=== PATIENT | female | born 2000 | race Caucasian/White ===

== ENCOUNTER 2019-05-15 19:02 | Inpatient (IN) ==
[2019-05-15] MEDS ORDERED: KEFZOL 1 GM/D5W 1 GM/50 ML IVPB IV PRN (19:10)
[2019-05-15] MEDS ORDERED: PEPCID PO PRN (19:10)
[2019-05-15] MEDS ORDERED: TYLENOL PO PRN (19:10)
[2019-05-15] MEDS ORDERED: PEPCID IV PRN (19:10)
[2019-05-15] MEDS ORDERED: BRETHINE SUBQ PRN (19:10)
[2019-05-15] MEDS ORDERED: STADOL IV PRN ×2 (19:10)
[2019-05-15] MEDS ORDERED: ZOFRAN IV PRN (19:10)
[2019-05-15] MEDS ORDERED: AMBIEN PO PRN (19:10)
[2019-05-15] MEDS ORDERED: REGLAN PO ONE (19:10)
[2019-05-15] MEDS ORDERED: PEPCID PO ONE (19:10)
[2019-05-15] MEDS ORDERED: PITOCIN 30 UNITS/NS 30 UNIT/500 ML IV.SOLN IV SCH (19:15)
[2019-05-15 19:45] LABS: BASO# 0.02 X1000 (0.0-0.2); BASO% 0.2 % (0.0-0.8); EOS# 0.05 X1000 (0.0-0.7); EOS% 0.4 % (0.0-10.0); HEMATOCRIT 36.7 % (37.0-47.0); IMM GRAN# 0.03 X1000 (0.0-0.04); IMM GRAN% 0.2 % (0.0-0.5); LYMPH# 2.41 X1000 (1.2-3.4); LYMPH% 18.9 % (20.5-51.1); MCH 29.8 PG (27-31); MCHC 32.7 g/dL (33-37); MCV 91.1 FL (81-99); MONO% 7.8 % (1.7-9.3); NEUT# 9.24 X1000 (1.4-6.5); NEUT% 72.5 % (42.2-75.2); PLT 297 X1000 (130-400); RBC 4.03 XMIL (4.2-5.4); RDW 14.8 % (11.5-14.5); WBC 12.75 X1000 (4.8-10.8)
[2019-05-15] MEDS: LR 1,000 ML IV ONE (20:57)
[2019-05-15] MEDS: CYTOTEC ONE (20:57)
[2019-05-15 20:58] LABS: URINE SOURCE VOIDED
[2019-05-15 21:07] LABS: BILIRUBIN URINE NEGATIVE (NEGATIVE); BLOOD URINE TRACE (NEGATIVE); CLARITY SL. CLOUDY (CLEAR); COLOR YELLOW; KETONE URINE TRACE mg/dL (NEGATIVE); LEUKOCYTES URINE 2+ (NEGATIVE); NITRITE URINE NEGATIVE (NEGATIVE); PROTEIN URINE TRACE mg/dL (NEGATIVE); SP GRAVITY URINE 1.025; UROBILINOGEN URINE NORMAL
[2019-05-15 21:11] LABS: UR AMPHETAMINES QUAL NONE DETECTED (NONE DETECT); UR BARBITUATES QUAL NONE DETECTED (NONE DETECT); UR BENZODIAZEPIN QUAL NONE DETECTED (NONE DETECT); UR CANNABINOIDS QUAL NONE DETECTED (NONE DETECT); UR COCAINE QUAL NONE DETECTED (NONE DETECT); UR METHADONE QUAL NONE DETECTED (NONE DETECT); UR METHAMPHETAMINE QUAL NONE DETECTED (NONE DETECT); UR OPIATES QUAL NONE DETECTED (NONE DETECT); UR OXYCODONE QUAL NONE DETECTED (NONE DETECT); UR PCP QUAL NONE DETECTED (NONE DETECT); UR PROPOXYPHENE QUAL NONE DETECTED (NONE DETECT); UR TCA QUAL NONE DETECTED (NONE DETECT)
[2019-05-16] MEDS: STADOL IV PRN ×3 (00:03→06:28)
[2019-05-16] MEDS ORDERED: CYTOTEC ONE ×2 (01:02→04:59)
[2019-05-16] MEDS: CYTOTEC ONE (01:04)
[2019-05-16] MEDS: CYTOTEC VAG SCH (04:05)
--- NOTE | 2019-05-16 07:09 | HISTORY AND PHYSICAL ---
HISTORY OF PRESENT ILLNESS: Ms. Ruiz is a 19-year-old, G1, P 0, at 39 weeks and 5 days, who presents to Labor and Delivery for scheduled induction of labor. The patient reports good movement. Denies contractions, leakage of fluid, or vaginal bleeding. PAST MEDICAL HISTORY: Depression, ADHD, anxiety. PAST SURGICAL HISTORY: None. OBSTETRICAL HISTORY: G1, P0. Current has been uncomplicated. GYNECOLOGIC HISTORY: Denies STD exposure. Menarche at age 9. FAMILY HISTORY: Noncontributory. SOCIAL HISTORY: Denies alcohol, tobacco, or drug use. ALLERGIES: No known drug allergies. PHYSICAL EXAMINATION: VITAL SIGNS: Temperature 97.8 degrees Fahrenheit, blood pressure 119/83. Height 5 feet 2 inches, weight 173 pounds, BMI 31.6 kg/m2. GENERAL: No acute distress. Alert, awake, oriented x3. CARDIOVASCULAR: Regular rate and rhythm. Positive S1, S2. RESPIRATORY: Clear to auscultation bilaterally. ABDOMEN: Gravid, nontender to palpation, soft. EXTREMITIES: Negative calf tenderness. There is +1 edema. PELVIC: Vaginal exam: Closed, 50, -3. Electronic monitoring: Category 1 tracing. [place]: Negative contractions. LABORATORY DATA: WBCs 12.75, hemoglobin 12, hematocrit 36.7, platelets 297,000. Rubella nonimmune. RPR nonreactive. GBS negative. MEDICATIONS: Folic acid, vitamins. ASSESSMENT: Ms. Ruiz is a 19-year-old, G1, P0, at 39 weeks and 5 days, who presents for induction of labor. PLAN: 1. Admit to Labor and Delivery. 2. Induction with Cytotec 25 mcg every 4 hours per vagina for cervical ripening, followed by use of Pitocin and/or artificial rupture of membranes. 3. I discussed the risks and benefits of an elective induction of labor, risks of vaginal delivery, not limited to bleeding, lacerations, and need for blood transfusion and possible emergency section. Risks of section were discussed in depth with the patient, and not limited to bleeding, infection, possible injury to surrounding organs, and postoperative pain. 4. Depression and anxiety. Will monitor closely for depression. The patient understands the risks. 5. Continuous monitoring. 6. IV pain medications and/or epidural for pain management. 7. Estimated weight 8 pounds. 8. Anticipate vaginal delivery.
[2019-05-16] MEDS: LR 1,000 ML IV ONE ×2 (07:15→09:22)
[2019-05-16] MEDS ORDERED: MARCAINE 0.25% PF INJ ONE (07:15)
[2019-05-16] MEDS ORDERED: LR 0 ML ONE (07:29)
[2019-05-16] MEDS ORDERED: FENTANYL-BUPIV-NS 2 MCG-0.1% 250 ML EPIDURAL SCH (08:00)
[2019-05-16] MEDS ORDERED: XYLOCAINE-MPF 1% 5 ML ONE (08:54)
[2019-05-16] MEDS ORDERED: XYLOCAINE-MPF 1% INJ ONE (09:09)
[2019-05-16] MEDS ORDERED: MINERAL OIL PO ONE (09:10)
--- NOTE | 2019-05-16 09:52 | OB/GYN PROGRESS NOTE ---
OB Physical Exam Vital Signs - 8 hr 05/16/19 04:00 05/16/19 07:21 Temperature 97.2 F L 97.7 F Pulse Rate 82 81 Respiratory Rate 18 16 Blood Pressure 131/78 153/94 O2 Sat by Pulse Oximetry 97 Active Medications Generic Name Dose Route Start Last Admin Trade Name Freq PRN Reason Stop Dose Admin Acetaminophen 650 mg 05/15/19 19:10 Tylenol PO Q4-6H PRN PRN Headache Butorphanol Tartrate 2 mg 05/15/19 19:10 05/16/19 06:28 Stadol IV 2 mg PRN PRN Administration Pain Butorphanol Tartrate 1 mg 05/15/19 19:10 Stadol IV Q2H PRN PRN Pain (1-4 on Pain Scale) Butorphanol Tartrate 2 mg 05/15/19 19:10 Stadol IV Q2H PRN PRN Pain (5-10 on Pain Scale) Famotidine 20 mg 05/15/19 19:10 Pepcid IV Q12H PRN PRN GI upset or indigestion Famotidine 20 mg 05/15/19 19:10 Pepcid PO Q12H PRN PRN GI upset or indigestion Cefazolin Sodium/Dextrose 1 gm in 50 mls @ 100 mls/hr 05/15/19 19:10 Kefzol 1 Gm/D5w IV ONCE PRN PRN section Oxytocin/Sodium Chloride 30 unit in 500 mls @ 0 mls/hr 05/15/19 19:15 05/16/19 09:00 Pitocin 30 Units/Ns IV 2 mls/hr .Q0M YAZMIN Administration As Directed Fentanyl/Bupivacaine/Sodium Chlor 250 mls @ 0 mls/hr 05/16/19 08:00 05/16/19 08:18 Jqjajbku-[id number]-Tl 2 Mcg-0.1% EPIDURAL 12 mls/hr DIRECTED YAZMIN Administration As Directed Misoprostol 25 microgm 05/15/19 21:00 05/16/19 04:05 Cytotec VAG 05/16/19 17:01 Not Given Q4H YAZMIN Ondansetron HCl 4 mg 05/15/19 19:10 05/16/19 00:03 Zofran IV 4 mg PRN PRN Administration Nausea Terbutaline Sulfate 0.25 mg 05/15/19 19:10 Brethine SUBQ PRN PRN tachysystole/hypertonus Zolpidem Tartrate 10 mg 05/15/19 19:10 Ambien PO HS PRN PRN Sleep Laboratory Results - last 24 hr 05/15/19 05/15/19 05/15/19 19:05 19:05 19:30 WBC RBC Hgb Hct MCV MCH MCHC RDW Std Deviation Plt Count MPV Immature Gran % (Auto) Neut % (Auto) Lymph % (Auto) [place] % (Auto) Eos % (Auto) Baso % (Auto) Immature Gran # (Auto) Neut # (Auto) Lymph # (Auto) [place] # (Auto) Eos # (Auto) Baso # (Auto) Urine Source VOIDED Urine Color YELLOW Urine Clarity SL. CLOUDY A Urine pH 6.0 Ur Specific [place] 1.025 Urine Protein TRACE A Urine Ketones TRACE Urine Blood TRACE Urine Nitrite NEGATIVE Urine Bilirubin NEGATIVE Urine Urobilinogen NORMAL Urine WBC 2+ A Urine Glucose 1+(100 mg/dL) A Urine Opiates Screen NONE DETECTED Ur Oxycodone Screen NONE DETECTED Urine Methadone Screen NONE DETECTED U Propoxyphene Qual NONE DETECTED Ur Barbituates Screen NONE DETECTED Ur Tricyclics Screen NONE DETECTED Ur Phencyclidine Scrn NONE DETECTED Ur Amphetamines Screen NONE DETECTED U Methamphetamines Scrn NONE DETECTED U Benzodiazepines Scrn NONE DETECTED Urine Cocaine Screen NONE DETECTED U Cannabinoids Screen NONE DETECTED RPR NON-REACTIVE 05/15/19 19:30 WBC 12.75 H RBC 4.03 L Hgb 12.0 Hct 36.7 L MCV 91.1 MCH 29.8 MCHC 32.7 L RDW Std Deviation 14.8 H Plt Count 297 MPV 10.0 Immature Gran % (Auto) 0.2 Neut % (Auto) 72.5 Lymph % (Auto) 18.9 L [place] % (Auto) 7.8 Eos % (Auto) 0.4 Baso % (Auto) 0.2 Immature Gran # (Auto) 0.03 Neut # (Auto) 9.24 H Lymph # (Auto) 2.41 [place] # (Auto) 1.00 H Eos # (Auto) 0.05 Baso # (Auto) 0.02 Urine Source Urine Color Urine Clarity Urine pH Ur Specific [place] Urine Protein Urine Ketones Urine Blood Urine Nitrite Urine Bilirubin Urine Urobilinogen Urine WBC Urine Glucose Urine Opiates Screen Ur Oxycodone Screen Urine Methadone Screen U Propoxyphene Qual Ur Barbituates Screen Ur Tricyclics Screen Ur Phencyclidine Scrn Ur Amphetamines Screen U Methamphetamines Scrn U Benzodiazepines Scrn Urine Cocaine Screen U Cannabinoids Screen RPR
--- NOTE | 2019-05-16 09:56 | OB/GYN PROGRESS NOTE ---
Progress Note OB - . OB Progress Note: Vital Signs - 24 hr 05/15/19 19:10 05/16/19 04:00 05/16/19 07:21 Temperature 96.8 F L 97.2 F L 97.7 F Pulse Rate 90 82 81 Respiratory Rate 18 18 16 Blood Pressure 123/82 131/78 153/94 O2 Sat by Pulse Oximetry 97 Laboratory Results - last 24 hr 05/15/19 05/15/19 05/15/19 19:05 19:05 19:30 WBC RBC Hgb Hct MCV MCH MCHC RDW Std Deviation Plt Count MPV Immature Gran % (Auto) Neut % (Auto) Lymph % (Auto) [place] % (Auto) Eos % (Auto) Baso % (Auto) Immature Gran # (Auto) Neut # (Auto) Lymph # (Auto) [place] # (Auto) Eos # (Auto) Baso # (Auto) Urine Source VOIDED Urine Color YELLOW Urine Clarity SL. CLOUDY A Urine pH 6.0 Ur Specific [place] 1.025 Urine Protein TRACE A Urine Ketones TRACE Urine Blood TRACE Urine Nitrite NEGATIVE Urine Bilirubin NEGATIVE Urine Urobilinogen NORMAL Urine WBC 2+ A Urine Glucose 1+(100 mg/dL) A Urine Opiates Screen NONE DETECTED Ur Oxycodone Screen NONE DETECTED Urine Methadone Screen NONE DETECTED U Propoxyphene Qual NONE DETECTED Ur Barbituates Screen NONE DETECTED Ur Tricyclics Screen NONE DETECTED Ur Phencyclidine Scrn NONE DETECTED Ur Amphetamines Screen NONE DETECTED U Methamphetamines Scrn NONE DETECTED U Benzodiazepines Scrn NONE DETECTED Urine Cocaine Screen NONE DETECTED U Cannabinoids Screen NONE DETECTED RPR NON-REACTIVE 05/15/19 19:30 WBC 12.75 H RBC 4.03 L Hgb 12.0 Hct 36.7 L MCV 91.1 MCH 29.8 MCHC 32.7 L RDW Std Deviation 14.8 H Plt Count 297 MPV 10.0 Immature Gran % (Auto) 0.2 Neut % (Auto) 72.5 Lymph % (Auto) 18.9 L [place] % (Auto) 7.8 Eos % (Auto) 0.4 Baso % (Auto) 0.2 Immature Gran # (Auto) 0.03 Neut # (Auto) 9.24 H Lymph # (Auto) 2.41 [place] # (Auto) 1.00 H Eos # (Auto) 0.05 Baso # (Auto) 0.02 Urine Source Urine Color Urine Clarity Urine pH Ur Specific [place] Urine Protein Urine Ketones Urine Blood Urine Nitrite Urine Bilirubin Urine Urobilinogen Urine WBC Urine Glucose Urine Opiates Screen Ur Oxycodone Screen Urine Methadone Screen U Propoxyphene Qual Ur Barbituates Screen Ur Tricyclics Screen Ur Phencyclidine Scrn Ur Amphetamines Screen U Methamphetamines Scrn U Benzodiazepines Scrn Urine Cocaine Screen U Cannabinoids Screen RPR Pt seen and examined. Admitted for IOL. Pt made appropriate change management manager night and requested epidural for pain mgt. S/p epidural, RN attempted to insert jarrell cath. I was called to room due to significant bleeding noted with jarrell insertion. Jarrell was appropriately inserted into bladder and an anterior urethra tear was identified. Urology, Dr. Romain Cannon was consulted. Informed web content writer, urethra too vascular to repair with stitch. Advised to place jarrell balloon on tension at bladder neck. Pressure is also being applied up against the pubic symphysis with 4x4 gauze. Pt is currently 9cm/100%/0. Pitocin applied to augment labor and reassess urethra tear. Will call Dr. Cannon if no improvement s/p pressure at pubic symphysis and jarrell balloon tension on bladder neck
[2019-05-16] MEDS ORDERED: MARCAINE 0.5% PF INJ ONE (10:58)
[2019-05-16] MEDS ORDERED: MARCAINE 0.5% PF ONE (11:03)
[2019-05-16] MEDS ORDERED: REGLAN PO ONE (11:07)
[2019-05-16] MEDS ORDERED: PITOCIN ONE ×4 (11:27→12:01)
[2019-05-16] MEDS ORDERED: DURAMORPH ONE (11:32)
[2019-05-16] MEDS ORDERED: DILAUDID ONE (12:13)
[2019-05-16] MEDS ORDERED: ZOFRAN ONE (12:30)
[2019-05-16] MEDS ORDERED: DEMEROL IM PRN (12:42)
[2019-05-16] MEDS ORDERED: BOOSTRIX VACCINE IM ONE (12:42)
[2019-05-16] MEDS ORDERED: MOTRIN PO PRN (12:42)
[2019-05-16] MEDS ORDERED: DULCOLAX PR PRN (12:42)
[2019-05-16] MEDS ORDERED: PITOCIN IM PRN (12:42)
[2019-05-16] MEDS ORDERED: PITOCIN 20 UNITS/NS 20 UNITS/1,000 ML IV.SOLN IV ONE (12:42)
[2019-05-16] MEDS ORDERED: ATARAX PO PRN (12:42)
[2019-05-16] MEDS ORDERED: DEMEROL PO PRN ×2 (12:42)
[2019-05-16] MEDS ORDERED: PHENERGAN IM PRN (12:42)
[2019-05-16] MEDS ORDERED: MYLICON PO PRN (12:42)
[2019-05-16] MEDS ORDERED: AMBIEN PO PRN (12:42)
[2019-05-16] MEDS ORDERED: HYDROXYZINE IM PRN (12:42)
[2019-05-16] MEDS ORDERED: M-M-R II VACCINE SUBQ ONE (12:42)
[2019-05-16] MEDS ORDERED: PITOCIN 10 UNITS/NS 1,000 ML IV SCH (12:45)
[2019-05-16] MEDS ORDERED: ZOFRAN IV PRN ×2 (13:15)
[2019-05-16] MEDS ORDERED: ZOFRAN ODT PO PRN (13:15)
[2019-05-16] MEDS ORDERED: BENADRYL IV PRN (13:15)
[2019-05-16] MEDS ORDERED: NARCAN INJ PRN (13:15)
[2019-05-16 13:55] LABS: BASO# 0.01 X1000 (0.0-0.2); BASO% 0.1 % (0.0-0.8); HEMATOCRIT 35.1 % (37.0-47.0); HEMOGLOBIN 11.2 g/dL (12.0-16.0); IMM GRAN# 0.04 X1000 (0.0-0.04); IMM GRAN% 0.2 % (0.0-0.5); LYMPH# 1.37 X1000 (1.2-3.4); LYMPH% 7.6 % (20.5-51.1); MCH 29.6 PG (27-31); MCHC 31.9 g/dL (33-37); MCV 92.6 FL (81-99); MONO# 0.96 X1000 (0.11-0.59); MONO% 5.3 % (1.7-9.3); MPV 9.9 FL (7.4-10.4); NEUT# 15.65 X1000 (1.4-6.5); NEUT% 86.8 % (42.2-75.2); PLT 291 X1000 (130-400); RBC 3.79 XMIL (4.2-5.4); RDW 14.9 % (11.5-14.5); WBC 18.03 X1000 (4.8-10.8)
[2019-05-16 13:57] LABS: LYMPHS 7 % (21-51); MONO 5 % (1-9); SEGS 88 % (42-75)
[2019-05-16] MEDS: MYLICON PO SCH ×3 (14:51→20:35)
[2019-05-16] MEDS ORDERED: MONSEL SOLUTION TOP ONE (17:16)
[2019-05-16] MEDS: PERICOLACE PO SCH (20:36)
--- NOTE | 2019-05-16 21:47 | OPERATIVE NOTE ---
PROCEDURE DATE: 05/16/2019 SURGEON: Sharon Alvarez DO DESK OFFICER: Aniceto Gilliland III, MD PREOPERATIVE DIAGNOSES: 1. Intrauterine at 39 weeks and 5 days. 2. Category 3 tracing, recurrent late decelerations. POSTOPERATIVE DIAGNOSES: 1. Intrauterine at 39 weeks and 5 days. 2. Category 3 tracing, recurrent late decelerations. PROCEDURE PERFORMED: Primary low transverse section. ANESTHESIA: Epidural. FINDINGS: Normal uterus, bilateral tubes and ovaries. Viable male , weighing 7 pounds 4 ounces. Apgars 6 and 8 at 1 and 5 minutes respectively. COMPLICATIONS: None. ESTIMATED BLOOD LOSS: 600 mL. SPECIMENS REMOVED: Placenta. URINE OUTPUT: 75 mL. IV FLUIDS: 1000 mL. SURGICAL RISKS: The patient was informed of the risks and benefits of the procedure. The risks include, but were not limited to, bleeding, infection, injury to internal organs and possible hysterectomy. The patient expressed understanding of the risks involved. All questions were answered, and the patient consented to procedure. DESCRIPTION OF PROCEDURE: Patient was taken to the operating room where a time- out was performed to confirm correct patient and correct procedure. Spinal anesthesia was adequately established, and prophylactic intravenous antibiotics was administered. The patient was then placed in a dorsal supine position with a left tilt of the hips. The patient was then prepped and draped in the usual sterile fashion for a Pfannenstiel incision skin incision. The incision was made in the skin with a surgical scalpel. Sharp dissection was carried out over subsequent layers of the tissue, including the fascia followed by the Bovie electrocautery for hemostasis. The fascia was incised at the midline fascia. The fascial incision was extended bilaterally using the Bovie electrocautery. The inferior edge of the fascial incision was grasped with Angela clamps, tented up and the underlying rectus muscle was dissected off bluntly with the Bovie electrocautery. Attention was then turned to the superior edge, which was grasped with Angela clamps, tented up and the underlying rectus muscle was dissected off using Bovie electrocautery. The rectus muscle was then divided at the midline, and the peritoneum was identified, tented up, at its superior margin, taking care to avoid the bladder, and then entered bluntly. The peritoneal incision was extended superiorly and inferiorly using Bovie electrocautery with good visualization of the bladder. The bladder blade was inserted, and the vesical peritoneum was identified. It was grasped with smooth pickups and cut laterally to both sides using Metzenbaum scissors. A bladder flap was then created using blunt and sharp dissection with the Metzenbaum scissors. The bladder blade was reinserted, and a transverse incision was made in the lower uterine segment using the scalpel. The uterine incision was extended bilaterally using blunt dissection. The amniotic sac was entered, and the amniotic sac fluid was noted to be clear. The electrical assistant's hand was then placed into the uterine cavity and the head was identified elevated into the abdomen and delivered through the uterine incision with the assistance of fundal pressure. The infant was examined for nuchal cord. No nuchal cord was identified. The was bulb suctioned via the mouth and nasal passages. The was then delivered with traction and the assistance of fundal pressure. On delivery, the cord was clamped and cut. The was then passed off the table to the director field services staff for further care. Cord blood was obtained for analysis and routine blood testing. The placenta was manually extracted intact with a three- vessel cord. Oxytocin was administered by IV infusion to enhance uterine contractions. The uterus was exteriorized, and cleared of all clots and remaining products of conception. Prior to repairing the uterine incision, an extension along the posterior aspect of the lower uterine segment was repaired using 1-0 Monocryl in a running locked fashion. The uterine incision was then reapproximated using 1-0 Monocryl in a running locked fashion. Non- hemostatic areas were reinforced with 1-0 Monocryl in a [id number] stitch. Good hemostasis was confirmed, and the uterus was replaced into the abdomen. The pericolic gutters were cleared of all clots. The peritoneal tissue was identified below the rectus muscle and reapproximated using 2-0 plain in a running nonlocking fashion. Attention was then turned to the fascia which was reapproximated using 0 Vicryl in a running nonlocking fashion. The subcutaneous fat was reapproximated using 2-0 plain gut in a running nonlocking fashion. The skin was reapproximated using 2-0 Monocryl on a Ba stitch inserted in a running subcuticular fashion. All needle, sponge, and instrument counts were noted to be correct x2 at the end of the procedure. The patient tolerated the procedure well and was transferred to recovery in stable condition. The anterior urethral tear was examined by myself as well as Dr. Gilliland. Good hemostasis was noted on examination. Be balloon was reapplied on tension to reinforce hemostasis along the urethral/ bladder neck edge. [facility]
[2019-05-16] MEDS: MORPHINE IV PRN (23:49)
[2019-05-17 06:12] LABS: HEMATOCRIT 31.1 % (37.0-47.0); HEMOGLOBIN 9.8 g/dL (12.0-16.0); MCH 29.4 PG (27-31); MCHC 31.5 g/dL (33-37); MCV 93.4 FL (81-99); RBC 3.33 XMIL (4.2-5.4); RDW 15.4 % (11.5-14.5); WBC 12.19 X1000 (4.8-10.8)
[2019-05-17] MEDS: MORPHINE IV PRN (08:26)
[2019-05-17] MEDS ORDERED: PERI MEDS (DERMOPLAST/NUPERCAINAL/TUCKS) MISC PRN (08:49)
--- NOTE | 2019-05-17 09:04 | OB/GYN PROGRESS NOTE ---
Progress Note OB - . Patient Problems: Current Active Problems Problem Status Onset S/P primary low transverse Acute OB Progress Note: Vital Signs - 24 hr 05/16/19 10:31 05/16/19 12:36 05/16/19 12:46 Temperature 96.4 F L 96.9 F L Pulse Rate 93 H 109 H 105 H Respiratory Rate 18 14 14 Blood Pressure 126/75 129/76 Blood Pressure [Left Arm] 105/59 110/60 O2 Sat by Pulse Oximetry 100 100 100 05/16/19 12:56 05/16/19 13:06 05/16/19 13:16 Temperature Pulse Rate 109 H 125 H 123 H Respiratory Rate 15 18 18 Blood Pressure Blood Pressure [Left Arm] 120/66 103/61 117/66 O2 Sat by Pulse Oximetry 100 100 100 05/16/19 13:26 05/16/19 13:36 05/16/19 13:38 Temperature Pulse Rate 115 H 125 H 125 H Respiratory Rate 18 18 Blood Pressure 113/60 Blood Pressure [Left Arm] 117/62 113/60 O2 Sat by Pulse Oximetry 100 100 100 05/16/19 15:02 05/16/19 16:20 05/16/19 20:21 Temperature 98.3 F 97.8 F Pulse Rate 106 H 133 H Respiratory Rate 18 20 Blood Pressure 118/71 128/74 Blood Pressure [Left Arm] O2 Sat by Pulse Oximetry 100 100 97 05/16/19 23:35 05/17/19 04:01 05/17/19 08:00 Temperature 97.7 F 98.3 F Pulse Rate 129 H 123 H 127 H Respiratory Rate 20 18 16 Blood Pressure 122/66 112/61 130/85 Blood Pressure [Left Arm] O2 Sat by Pulse Oximetry 96 96 98 Laboratory Results - last 24 hr 05/16/19 05/16/19 05/17/19 09:25 13:38 05:20 WBC 18.03 H 12.19 H RBC 3.79 L 3.33 L Hgb 11.2 L 9.8 L Hct 35.1 L 31.1 L MCV 92.6 93.4 MCH 29.6 29.4 MCHC 31.9 L 31.5 L RDW Std Deviation 14.9 H 15.4 H Plt Count 291 193 D MPV 9.9 10.0 Immature Gran % (Auto) 0.2 Neut % (Auto) 86.8 H Lymph % (Auto) 7.6 L [place] % (Auto) 5.3 Eos % (Auto) 0.0 Baso % (Auto) 0.1 Immature Gran # (Auto) 0.04 Neut # (Auto) 15.65 H Lymph # (Auto) 1.37 [place] # (Auto) 0.96 H Eos # (Auto) 0.00 Baso # (Auto) 0.01 Segmented Neutrophils 88 H Lymphocytes 7 L Monocytes 5 Blood Type O POSITIVE Antibody Screen NEGATIVE S: Patient reports of some abdominal pain, but controlled with pain meds. Denied fever, chills, N/V, SOB, or chest pain. Tolerating clears. Has not ambulated yet. Unsure of amount of vaginal bleeding. O: Gen: NAD; AAOx3 CV: tachycardic; regular rhythm Pulm: CTAB; no rhonchi, wheezing, or rales Abd: soft, some TTP; non-distended; hypoactive bowel sounds; fundus firm Incision: dressing clear, dry Ext: no LE TTP; SCDs on and functioning Pelvic: 4x4 Ray-neelima removed; no active bleeding noted around urethra; area tender to touch; smeared with monsels Jarrell bag: clear, yellow tinged UOP: ~480cc/8hrs Labs: reviewed A&P: 19yo s/p CD#1 for NRFHTs at 39w5d with urethral laceration, 1. POD#1 -Serial H/H reviewed -Tachycardia seems to be related to the associated pain, as BPs wnl and UOP adequate -Will keep jarrell cath in for now until can better evaluate urethra. Encouraged use of benzocaine spray around area. If pain persist, consider lidocaine gel topically -Diet advanced; IV saline locked 2. Hx depression/anxiety -Patient denied -SW consultation ordered, jolene considering this is patient's first baby 3. ADHD
[2019-05-17] MEDS: MOTRIN PO SCH ×2 (09:46→17:50)
[2019-05-17] MEDS: NORCO-10 PO PRN ×3 (09:47→23:03)
[2019-05-17] MEDS: MYLICON PO SCH ×4 (09:48→23:03)
[2019-05-17 12:33] LABS: BASO# 0.01 X1000 (0.0-0.2); BASO% 0.1 % (0.0-0.8); EOS# 0.03 X1000 (0.0-0.7); EOS% 0.2 % (0.0-10.0); HEMATOCRIT 31.2 % (37.0-47.0); IMM GRAN# 0.04 X1000 (0.0-0.04); IMM GRAN% 0.3 % (0.0-0.5); LYMPH# 1.74 X1000 (1.2-3.4); LYMPH% 12.3 % (20.5-51.1); MCH 29.9 PG (27-31); MCHC 32.1 g/dL (33-37); MCV 93.1 FL (81-99); MONO# 1.06 X1000 (0.11-0.59); MONO% 7.5 % (1.7-9.3); MPV 9.6 FL (7.4-10.4); NEUT# 11.22 X1000 (1.4-6.5); NEUT% 79.6 % (42.2-75.2); PLT 238 X1000 (130-400); RBC 3.35 XMIL (4.2-5.4); RDW 15.4 % (11.5-14.5)
[2019-05-17] MEDS ORDERED: LR 1,000 ML IV SCH (12:42)
[2019-05-17] MEDS: PERICOLACE PO SCH (23:03)
[2019-05-18] MEDS: MOTRIN PO SCH ×3 (01:11→18:31)
[2019-05-18] MEDS: NORCO-10 PO PRN ×3 (04:49→16:23)
--- NOTE | 2019-05-18 07:39 | OB/GYN PROGRESS NOTE ---
Progress Note OB - . Patient Problems: Current Active Problems Problem Status Onset S/P primary low transverse Acute OB Progress Note: Vital Signs - 24 hr 05/17/19 08:00 05/17/19 08:03 05/17/19 12:16 Temperature 98.3 F 97 F L Pulse Rate 127 H 121 H 125 H Respiratory Rate 16 16 20 Blood Pressure 130/85 119/73 O2 Sat by Pulse Oximetry 98 98 05/17/19 16:00 05/17/19 19:43 05/17/19 20:27 Temperature 96.8 F L 96.8 F L Pulse Rate 109 H 108 H Respiratory Rate 16 20 Blood Pressure 119/72 124/80 O2 Sat by Pulse Oximetry 98 99 96 05/18/19 01:07 05/18/19 04:35 Temperature 96.5 F L 96.7 F L Pulse Rate 115 H 119 H Respiratory Rate 18 18 Blood Pressure 115/59 125/65 O2 Sat by Pulse Oximetry 97 99 Laboratory Results - last 24 hr 05/17/19 12:15 WBC 14.10 H RBC 3.35 L Hgb 10.0 L Hct 31.2 L MCV 93.1 MCH 29.9 MCHC 32.1 L RDW Std Deviation 15.4 H Plt Count 238 MPV 9.6 Immature Gran % (Auto) 0.3 Neut % (Auto) 79.6 H Lymph % (Auto) 12.3 L [place] % (Auto) 7.5 Eos % (Auto) 0.2 Baso % (Auto) 0.1 Immature Gran # (Auto) 0.04 Neut # (Auto) 11.22 H Lymph # (Auto) 1.74 [place] # (Auto) 1.06 H Eos # (Auto) 0.03 Baso # (Auto) 0.01 19 yo POD#2 s/p 1LTCS at 39w5d due to NRFHTs with urethral laceration Patient seen and examined. Pain controlled. Jarrell catheter in place. She has ambulated 3x since surgery. She is tolerating a regular diet, no nausea/vomiting. She notes minimal vaginal bleeding. Baby is doing well, she is bottle feeding. Physical Exam-General - PHYSICAL EXAM-ADULT Initial Vital Signs Reviewed: Yes - CONSTITUTIONAL General Appearance: appears well, alert, no apparent distress - EYES Eyes: PERRL/EOMI - HEAD, EARS, NOSE, MOUTH & THROAT HENMT: normocephalic/atraumatic - RESPIRATORY Respiratory: lungs clear, normal breath sounds, no respiratory distress - CARDIOVASCULAR Cardiovascular: regular rate, rhythm - GASTROINTESTINAL (ABDOMEN) Abdominal Exam: normal bowel sounds, non tender, soft (Incision C/D/I with steri-strips, fundus firm, below umbilicus, ATTP) - GENITOURINARY Female Genitalia/Pelvic Exam: other (anterior urethral laceration with jarrell catheter in place, no active bleeding, some debris from Monsel's around laceration) - MUSCULOSKELETAL Extremity: normal range of motion, non-tender - PSYCHIATRIC Psych/Mental Status: normal mood/affect Assessment/Plan - Assessment/Plan Assessment: 19 yo POD#2 s/p 1LTCS at 39w5d for NRFHTs, with urethral laceration 1. HD stable, last Hgb 10 2. [address] catheter in place, plan per urology to leave x 10 days and follow-up outpatient. Plan discussed with patient today. UO adequate. 3. Encourage ambulation today 4. Tachycardia, improved since yesterday. likely 2/2 pain. Continue to monitor. 5. Likely D/C tomorrow
[2019-05-18] MEDS: PRECARE PO SCH (09:57)
[2019-05-18] MEDS: MYLICON PO SCH ×4 (09:58→21:04)
[2019-05-18] MEDS ORDERED: MACROBID PO SCH ×2 (12:45→18:45)
[2019-05-18] MEDS: PERICOLACE PO SCH (21:04)
[2019-05-19] MEDS: MOTRIN PO SCH ×2 (01:21→08:58)
[2019-05-19] MEDS: NORCO-10 PO PRN ×2 (01:22→11:25)
--- NOTE | 2019-05-19 08:45 | DISCHARGE SUMMARY ---
ADMISSION DATE: 05/15/2019 DISCHARGE DATE: 05/19/2019 ADMITTING DIAGNOSES: 1. Primiparity. 2. Term . 3. Labor. Discharge induction of labor. at 39 and 5/7 th weeks gestation. 4. Elective induction of labor. 5. Depression, anxiety disorder. DISCHARGE DIAGNOSES: 1. Primiparity. 2. Term . 3. Labor. Discharge induction of labor. at 39 and 5 7 th weeks gestation. 4. Elective induction of labor. 5. Depression, anxiety disorder. 6. Same and primary section secondary to category 3 tracing. 7. Urethral tear. 8. Traumatic Be placement. BRIEF HISTORY/HOSPITAL COURSE: Adry is a 19-year-old, 1, para 0, now 1 at 39 and 5/7 th weeks gestation, was admitted for labor and delivery for induction of labor. She undergoes a Cytotec induction followed by a normal labor. Upon epidural placement, a traumatic catheterization was performed and there was significant bleeding from the anterior urethral tear. Urology was consulted. The tear responded to pressure. In the late 1st stage, early 2nd stage of labor the patient began having late decelerations and after conservative measures, they became repetitive and a primary section was performed. Please see separate operative note. Her postoperative course was uncomplicated. The urethral laceration was hemostatic and the decision was made to maintain Be catheter for 10 days and follow up with Urology. She began ambulating and voiding on postoperative day #2, tolerating a regular diet on postoperative day #2. She was ambulating with the Be in place. On postoperative day #3, vital signs stable, afebrile with hemoglobin 11.2, nadiring 10.0. She is discharged home in stable condition. She is ambulating, tolerating regular diet. Vital signs are stable. She is afebrile. She has undergone education for maintenance of her leg bag. She has a follow-up appointment with Urology next week. She does follow up with her OB doctor in 1 week. She is asked to call the office or hospital for pain, fever greater than 100.4, abnormal uterine bleeding. Maintain pelvic rest and regular diet. Continue vitamins and iron. A prescription for Motrin and Percocet provided.
[2019-05-19] MEDS: PRECARE PO SCH (08:58)
[2019-05-19] MEDS: MYLICON PO SCH ×2 (08:59→13:57)
[2019-05-19] MEDS ORDERED: FLU VACCINE IM ONE (10:47)
[2019-05-19 11:17] VITALS: BP 125/86
== END 2019-05-19 15:45 | disposition home or self-care (01) | DRG 787 ==
LOC: P.LD 19:02
PROVIDERS: ADMIT Obstetrics & Gynecology Obstetrics; ATTEND Obstetrics & Gynecology